=== PATIENT | female | born 2000 | race Caucasian/White ===

== ENCOUNTER 2022-01-02 05:26 | Emergency (ER) | payer SELFPAY ==
[~2022-01-02 05:26] MED LIST: AMOXICILLIN500 MG PO; BACTRIM DS TAB1 EACH PO; IBUPROFEN400 MG PO; MEDROL 4MG DOSEP4 MG PO; TESSALON PERLE100 M1 PO
[2022-01-02 06:52] LABS: CORONAVIRUS 2019 SARS-COV-2 NEGATIVE (NEGATIVE); INFLUENZA A NAA NEGATIVE (NEGATIVE)
[2022-01-02] MEDS ORDERED: IBUPROFEN400 MG PO (07:30)
== END 2022-01-02 07:50 | disposition home or self-care (01) ==
LOC: FER 05:26
PROVIDERS: Emergency Medicine
DX: G56.02 Carpal tunnel syndrome, left upper limb (principal); I10 Essential (primary) hypertension; Z79.899 Other long term (current) drug therapy; Z20.822 Contact with and (suspected) exposure to COVID-19
CPT/HCPCS: 73110; 93005; U0002